=== PATIENT | female | born 1940 | race Caucasian/White ===

== ENCOUNTER 2022-06-01 16:21 | Outpatient (CLI) | payer MEDICARE, SELFPAY ==
--- NOTE | ~2022-06-01 | XR_ITS ---
EXAMINATION: XR abdomen/kub 1V DATE: 06/01/2022 16:40 INDICATION: Generalized abdominal pain. Constipation. TECHNIQUE: A supine view of the abdomen was obtained. COMPARISON: None. FINDINGS: There are no dilated loops of bowel. There is a small volume of stool in the colon. Surgica l clips in the right upper quadrant are likely from cholecystectomy. There are changes of vertebropla sty in thoracic spine. IMPRESSION: 1. Normal bowel gas pattern. Reviewed, dictated and finalized at location A.
== END 2022-06-01 16:22 | disposition home or self-care (01) ==
PROVIDERS: PCP Family Medicine; Visit Provider Family Medicine
DX: R10.9 Unspecified abdominal pain (principal)
CPT/HCPCS: 74018

== ENCOUNTER 2022-10-17 13:15 | Outpatient (RCR) | payer MEDICARE, SELFPAY ==
--- NOTE | 2022-09-13 08:56 | OTOPEVAL1 ---
Assessment and note entered by STEPHEN Huitron/Tung Evaluation Information Assessment Status Evaluation Diagnosis L distal radius fracture Subjective Information Patient presents with a L distal radius fracture on 07/31/2022. Patient reports since breaking wrist has experienced difficulties with gripping/ grasping tasks, decreased wrist and finger motion. Patient reports has a history of trigger finger in middle finger of L hand several years prior but returned about 6 months ago. Patient reports goal with therapy is to get L hand and wrist moving better for daily tasks. Reported Pain Level Pain Score 0: Self Report Assessment OT Clinical Summary Amanda is a 82 year old female who presents to outpatient OT following a L distal radius fracture 07/31/2022 (6 weeks prior). Patient has decreased strength, active ROM, and some increased discomfort with movement of L UE wrist and hand. Patient would benefit from skilled OT for HEP instruction, UE exercise, modalities, manual therapy for optimizing functional use of L UE for daily activities. Plan of Care Interventions Therapeutic Exercise,Manual Therapy,Therapeutic Activities,Hot Pack/Cold Pack,Self-Care/Home Management,Paraffin OT Services Indicated Yes Treatment Frequency and 1x/wk, 5 weeks Duration These treatments will address the objective and functional deficits as defined above. The patient will be advanced safely and appropriately in order for the patient to progress towards his/her prior level of function. Additional exercises will be introduced and as well as a comprehensive home exercise program upon discharge, if needed, ?to ensure carryover of functional gains achieved in the clinic. This treatment plan has been reviewed and agreement upon by the patient.
--- NOTE | 2022-10-17 13:43 | OTOPDC ---
Assessment and note entered by Anthony Delgado, STEPHEN/Tung, CHT Evaluation Information Assessment Status Discharge Diagnosis L distal radius fracture Onset 07/31/22 Subjective Information Amanda reports she is now able to picker/puller and carry objects, such as a cup of coffee. She states she is also picking up dishes and doing more in the kitchen. Reporting her biggest limitation is the trigger finger now. She is wearing a splint for this and following up with the MD in 3 weeks. Reported Pain Level Pain Score 0,0: Self Report Additional Pain Score Comments Patient reporting no pain in the wrist at wrist. Pain increases to 4/10 with some of the exercises. Reports 9/10 pain when the trigger finger gets stuck. Assessment OT Clinical Summary Amanda is a 82 year old female who presents to outpatient OT following a left distal radius fracture 07/31/2022. She has made excellent progress with functional ROM and strength of the left forearm and wrist. She continues to have some residual stiffness, but is independent with the HEP for this. No further skilled OT indicated at this time. Plan of Care OT Services Indicated No
== END 2022-10-17 14:18 | disposition home or self-care (01) ==
LOC: ANHOT 13:15
PROVIDERS: PCP Family Medicine; Visit Provider Orthopaedic Surgery
DX: S52.502D Unspecified fracture of the lower end of left radius, subsequent encounter for closed fracture with routine healing (principal)
CPT/HCPCS: 97018; 97110; 97165

== ENCOUNTER 2022-11-17 15:30 | Outpatient (CLI) | payer MEDICARE, SELFPAY ==
--- NOTE | ~2022-11-17 | MR_ITS ---
EXAMINATION: MR knee RT wo con DATE: 11/17/2022 16:21 INDICATION: Fall onto right knee last following. Patellar and pain below the patella. TECHNIQUE: Magnetic resonance imaging (MRI) of the right knee was performed without intravenous contr ast. Sequences included axial PD-weighted FS FSE, coronal PD-weighted FSE and PD-weighted FS FSE, sag ittal PD-weighted FSE, and sagittal T2-weighted FS FSE. COMPARISON: X-ray right knee 07/31/2022, images only. FINDINGS: Medial compartment: Apical fraying. No meniscal tear. Moderate diffuse cartilage thinning. Mild osteophytosis. Lateral compartment: Intact meniscus. Moderate diffuse cartilage thinning. Mild osteophytosis. Patellofemoral compartment: Old vertically oriented fracture of the left patella, with persistent visualization of the fracture l ine, likely filled with granulation tissue. Osseous bridging, encompassing approximately 30-40% of th e fracture area. Moderate diffuse cartilage loss. Near full-thickness cartilage loss over the median ridge. No focal cartilage defect. Ligaments and tendons: The MCL, LCL, ACL, and PCL are intact. The remaining flexor and extensor tendons are intact. Fluid: Moderate volume joint fluid. Osseous/other: No suspicious focal or diffuse marrow signal. Chondrocalcinosis was present in the menisci in the clement[place] or radiographs. IMPRESSION: 1. Old partly oriented patellar fracture, with 30-40% osseous bridging. 2. No internal derangement. 3. Moderate right knee joint effusion. 4. Moderate tricompartmental arthritic change. Reviewed, dictated and finalized at location K. ATAL NURSE
== END 2022-11-17 15:31 | disposition home or self-care (01) ==
PROVIDERS: PCP Family Medicine; Visit Provider Orthopaedic Surgery
DX: M25.461 Effusion, right knee (principal); M17.11 Unilateral primary osteoarthritis, right knee
CPT/HCPCS: 73721

== ENCOUNTER 2023-05-03 12:18 | Outpatient (CLI) | payer MEDICARE, SELFPAY ==
--- NOTE | ~2023-05-03 | XR_ITS ---
Right Hand Technique: PA, oblique, and lateral views were obtained. Clinical History: Arthritis of the thumb Findings: No acute fracture or dislocation is seen. Osseous alignment is anatomic. There is mild oste oarthritis at the first CMC joint. Soft tissues are unremarkable. 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 Reviewed, dictated and finalized at [facility]. 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
== END 2023-05-03 12:19 | disposition home or self-care (01) ==
PROVIDERS: PCP Family Medicine; Visit Provider Plastic Surgery
DX: M18.11 Unilateral primary osteoarthritis of first carpometacarpal joint, right hand (principal)
CPT/HCPCS: 73130

== ENCOUNTER 2023-06-14 12:45 | Outpatient (RCR) | payer MEDICARE, SELFPAY ==
--- NOTE | 2023-04-27 16:09 | PTOPEVAL1 ---
Assessment and note entered by Simon Olvera, PT Evaluation Information Assessment Status Evaluation Diagnosis Spondylosis, RIght knee pain, Weakness Onset 07/31/22 Subjective Information Reports that she has had back issues for years. She had a fall last year that resulted in knee and wrist injury. Pain usually starts on her R side and radiates down her right leg. She cannot carry anything over 10 pounds without increased pain. She has had trouble getting up and down from a chair due to what she feels is related to weakness more than pain. Would also like to improve her posture. She used to receive cortisone injections but has not for a while. Reported Pain Level Pain Score 3: Self Report Assessment PT Clinical Summary Patient presents with significant chain deficits in knee, hip, and lumbar spine. Reflects gait and postural issues with centralized hip weakness and will benefit from skilled therapy to address all of these deficits. PT should emphasize gait stability, cycle, and progress to postural control in hips and upper back. Plan of Care Interventions Gait Training,Manual Therapy,Neuro Re-education, Therapeutic Activities,Therapeutic Exercise PT Services Indicated Yes These treatments will address the objective and functional deficits as defined above. The patient will be advanced safely and appropriately in order for the patient to progress towards his/her prior level of function. Additional exercises will be introduced and as well as a comprehensive home exercise program upon discharge, if needed, ?to ensure carryover of functional gains achieved in the clinic. This treatment plan has been reviewed and agreement upon by the patient.
--- NOTE | 2023-04-27 16:09 | OPREHPOC ---
Outpatient Therapy Plan of Care This is a Multidisciplinary Plan of Care that may contain components documented by all disciplines (PT, OT, and ST.) PT Problem 1 PT Problem #1 Knowledge Deficit PT Goal 1 Goal [place] with hip and core strengthening program Target Visit 8 PT Problem 2 PT Problem #2 Pain PT Goal 1 Goal Report no pain greater than 2/10 with transfers and walking PT Problem 3 PT Problem #3 Impaired Strength PT Goal 1 Goal Improve sylvia hip flexion strength to 4+/5 to improve foot clearance with gait Target Visit 8 PT Goal 2 Goal Improve sylvia hip abduction strength to 4/5 to improve stability with transfers and ADLs Target Visit 8 PT Problem 4 PT Problem #4 Impaired Functional Mobil PT Goal 1 Goal Patient will demonstrate ability to perform 10# floor retrieval without pain Target Visit 8
--- NOTE | 2023-05-23 16:13 | OTOPEVAL1 ---
Assessment and note entered by Anthony Delgado, STEPHEN/Tung, CHT Evaluation Information Assessment Status Evaluation Diagnosis Left middle finger and right thumb trigger fingers ; right CMC OA Subjective Information Patient reports having a trigger on the left middle finger for a long time. She has had 2 steroid injections, most recently one at the beginning on May. She has not been immobilizing the finger, but does have two splints at home. For the right thumb she has been having pain, difficulties with gripping and pinching items, and triggering also. Reported Pain Level Pain Score 4: Self Report Additional Pain Score Comments Patient takes Tylenol daily for the thumb pain. She has no pain in the left middle finger Assessment OT Clinical Summary Patient referred to outpatient hand therapy for left middle finger trigger finger, right thumb trigger finger, and right CMC OA. She has palpable nodules at both A1 pulleys and with active flexion the finger/thumb triggers, but she is able to actively extend out of this. Today a custom hand based thumb spica splint was fabricated to support the CMC joint, but the thumb IP was also included to rest the FPL tendon. She was educated on utilizing massage and ice to the A1 rachna areas. Continued skilled OT indicated for HEP instruction/progression, manual therapy, modalities, and splinting. Plan of Care Interventions Therapeutic Exercise,Manual Therapy,Therapeutic Activities,Hot Pack/Cold Pack,Check Out for Orthotic/Pr,Ultrasound,Paraffin OT Services Indicated Yes Treatment Frequency and 2x/week for 3 weeks Duration Patient going out of town mid-June These treatments will address the objective and functional deficits as defined above. The patient will be advanced safely and appropriately in order for the patient to progress towards his/her prior level of function. Additional exercises will be introduced and as well as a comprehensive home exercise program upon discharge, if needed, ?to ensure carryover of functional gains achieved in the clinic. This treatment plan has been reviewed and agreement upon by the patient.
--- NOTE | 2023-05-23 16:14 | OPREHPOC ---
Outpatient Therapy Plan of Care This is a Multidisciplinary Plan of Care that may contain components documented by all disciplines (PT, OT, and ST.) PT Problem 1 PT Problem #1 Knowledge Deficit PT Goal 1 Goal [place] with hip and core strengthening program Target Visit 8 PT Problem 2 PT Problem #2 Pain PT Goal 1 Goal Report no pain greater than 2/10 with transfers and walking PT Problem 3 PT Problem #3 Impaired Strength PT Goal 1 Goal Improve sylvia hip flexion strenght to 4+/5 to improve foot clearence with gait Target Visit 8 PT Goal 2 Goal Improve sylvia hip abduction strength to 4/5 to improve stability with transfers and ADLs Target Visit 8 PT Problem 4 PT Problem #4 Impaired Functional Mobil PT Goal 1 Goal Patient will demonstrate ability to perform 10# floor retrieval without pain Target Visit 8 OT Problem 1 OT Problem #1 Knowledge Deficit OT Goal 1 Goal Patient to be independent with instructed materials. Target Visit 6 OT Goal 2 Goal Patient to adhere to splint wearing schedule. Target Visit 6 OT Problem 2 OT Problem #2 Pain OT Goal 1 Goal Patient to report reduced pain in the right thumb with ROM/use, reporting pain at 2/10 or less. Target Visit 6 OT Problem 3 OT Problem #3 Impaired Range of Motion OT Goal 1 Goal Patient to be able to make a composite fist with the left hand without the middle finger triggering . Target Visit 6 OT Goal 2 Goal Patient to be able to flex the right thumb IP without triggering. Target Visit 6
--- NOTE | 2023-06-08 10:11 | PCOTNOTE ---
Late note for 06/07/23 - Patient called and cancelled tx today due to having poison domenico and didn't want to come in with it.
--- NOTE | 2023-06-11 14:48 | OPREHPOC ---
Outpatient Therapy Plan of Care This is a Multidisciplinary Plan of Care that may contain components documented by all disciplines (PT, OT, and ST.) PT Problem 1 PT Problem #1 Knowledge Deficit PT Goal 1 Goal [place] with hip and core strengthening program Target Visit 8 Progress Met PT Problem 2 PT Problem #2 Pain PT Goal 1 Goal Report no pain greater than 2/10 with transfers and walking Progress Partially Met Comment Improved but not consistent PT Problem 3 PT Problem #3 Impaired Strength PT Goal 1 Goal Improve sylvia hip flexion strength to 4+/5 to improve foot clearance with gait Target Visit 8 Progress Met PT Goal 2 Goal Improve sylvia hip abduction strength to 4/5 to improve stability with transfers and ADLs Target Visit 8 Progress Met PT Problem 4 PT Problem #4 Impaired Functional Mobil PT Goal 1 Goal Patient will demonstrate ability to perform 10# floor retrieval without pain Target Visit 8 OT Problem 1 OT Problem #1 Knowledge Deficit OT Goal 1 Goal Patient to be independent with instructed materials. Target Visit 6 OT Goal 2 Goal Patient to adhere to splint wearing schedule. Target Visit 6 OT Problem 2 OT Problem #2 Pain OT Goal 1 Goal Patient to report reduced pain in the right thumb with ROM/use, reporting pain at 2/10 or less. Target Visit 6 OT Problem 3 OT Problem #3 Impaired Range of Motion OT Goal 1 Goal Patient to be able to make a composite fist with the left hand without the middle finger triggering . Target Visit 6 OT Goal 2 Goal Patient to be able to flex the right thumb IP without triggering. Target Visit 6
--- NOTE | 2023-06-11 14:49 | PTOPDC ---
Assessment and note entered by Simon Olvera, PT Discharge Information Assessment Status Discharge Diagnosis Spondylosis, Right knee pain, Weakness Onset 07/31/22 Subjective Information Patient reports that therapy has really helped but she is still having discomfort shifting into back with activity. Overall no new concerns and feel she is comfortable with HEP. Plans to be out of town visiting family for 1 month and will discharge for now. Reported Pain Level Pain Score 0: Self Report Assessment PT Clinical Summary Patient has made significant strides in gait and strength. She is still showing deficits in hip abduction and extension which have reflected in functional mobility. She reflects compliance with HEP at this time and is suitable for D/C to HEP since she will be out of town for 1 month+. Plan of Care PT Services Indicated
--- NOTE | 2023-06-14 13:45 | OTOPPROG ---
Assessment and note entered by Anthony Delgado, OTR/Tung, CHT Evaluation Information Assessment Status Progress Diagnosis Left middle finger and right thumb trigger fingers ; right CMC OA Subjective Information Patient reports no longer having any pain in either hand. She reports she is now able to use her hands for more tasks, but she reports she is cautious. No longer reporting any pain with pinching. She has a right hand based thumb spica, which includes the thumb IP. As well as a finger immobilizer for the left middle finger. Trigger finger and thumb no longer catch with gentle ROM. With any forceful gripping there are catches/triggers. 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 Today she is able to move through active ROM without any triggering. With gross gripping on the left she does have trigger finger symptoms, but reports no longer having any pain with this. She has splints for both hands and is independent with all materials. She is traveling for a month, leaving this Sunday. Plan - have patient continue splinting, ROM, massage, and modalities on her own with the goal of following up in a month to be able to issue putty to begin neuropsychologist/pinch strengthening without any symptoms of triggering. Plan of Care Interventions Therapeutic Exercise,Manual Therapy,Therapeutic Activities,Hot Pack/Cold Pack,Check Out for Orthotic/Pr,Ultrasound,Paraffin OT Services Indicated Yes Treatment Frequency and Re-eval in a month: 07/20/23 Duration These treatments will address the objective and functional deficits as defined above. The patient will be advanced safely and appropriately in order for the patient to progress towards his/her prior level of function. Additional exercises will be introduced and as well as a comprehensive home exercise program upon discharge, if needed, ?to ensure carryover of functional gains achieved in the clinic. This treatment plan has been reviewed and agreement upon by the patient.
--- NOTE | 2023-06-14 13:46 | OPREHPOC ---
Outpatient Therapy Plan of Care This is a Multidisciplinary Plan of Care that may contain components documented by all disciplines (PT, OT, and ST.) PT Problem 1 PT Problem #1 Knowledge Deficit PT Goal 1 Goal [place] with hip and core strengthening program Target Visit 8 Progress Met PT Problem 2 PT Problem #2 Pain PT Goal 1 Goal Report no pain greater than 2/10 with transfers and walking Progress Partially Met Comment Improved but not consistent PT Problem 3 PT Problem #3 Impaired Strength PT Goal 1 Goal Improve [place] hip flexion strenght to 4+/5 to improve foot clearence with gait Target Visit 8 Progress Met PT Goal 2 Goal Improve sylvia hip abduction strength to 4/5 to improve stability with transfers and ADLs Target Visit 8 Progress Met PT Problem 4 PT Problem #4 Impaired Functional Mobil PT Goal 1 Goal Patient will demonstrate ability to perform 10# floor retrieval without pain Target Visit 8 OT Problem 1 OT Problem #1 Knowledge Deficit OT Goal 1 Goal Patient to be independent with instructed materials. ---OT POC UPDATE 06/14/23-- Met, continue as HEP is progressed Target Visit 8 OT Goal 2 Goal Patient to adhere to splint wearing schedule. ---OT POC UPDATE 06/14/23-- Met, continue as splints are weaned out of. Target Visit 8 OT Problem 2 OT Problem #2 Pain OT Goal 1 Goal Patient to report reduced pain in the right thumb with ROM/use, reporting pain at 2/10 or less. ---OT POC UPDATE 06/14/23-- Met, continue to treat pain PRN Target Visit 8 OT Problem 3 OT Problem #3 Impaired Range of Motion OT Goal 1 Goal Patient to be able to make a composite fist with the left hand without the middle finger triggering
--- NOTE | 2023-07-23 14:23 | PCOTNOTE ---
This treatment is being continued on visit number [id number]. Please see documentation on both accounts to view progress. Completed interventions, outcomes, and problems have been marked as Inactive to facilitate the copying of the Care plan routine for recurring accounts.
== END 2023-07-20 07:08 | disposition home or self-care (01) ==
LOC: ANHGOSHOT 12:45
PROVIDERS: PCP Family Medicine; Referring Provider Plastic Surgery; Visit Provider Family Medicine
DX: M47.9 Spondylosis, unspecified (principal); M25.561 Pain in right knee; M54.16 Radiculopathy, lumbar region; R26.89 Other abnormalities of gait and mobility; R53.1 Weakness
CPT/HCPCS: 97018; 97035; 97110; 97140; 97161; 97166; 97530; L3921

== ENCOUNTER 2023-07-30 13:15 | Outpatient (RCR) | payer MEDICARE, SELFPAY ==
--- NOTE | 2023-07-23 14:24 | PCOTNOTE ---
The treatment documented on this account is a continuation of the treatment documented on visit number [id number]. Please see documentation on both accounts to view progress. The Plan of Care has been transitioned and updated within the new V#. I have addressed and agree with the discipline specific Problems, Interventions, and Goals for the current certification period. Completed interventions, outcomes, and problems have been marked as Inactive to facilitate the copying of the Care plan routine for recurring accounts.
--- NOTE | 2023-07-23 14:26 | OTOPPROG ---
Assessment and note entered by Anthony Delgado, OTR/Tung, CHT Evaluation Information Diagnosis trigger finger, hand pain Subjective Information Patient reports no longer having symptoms of a trigger finger in the left thumb. The right middle finger continues to trigger and is a little painful, reporting 2/10. States she has had times where the finger feels good, doesn't catch, but seems like out of nowhere it will start catching and she returns to wearing her splint again. States she doesn't want surgery, but thinks this will be around chronically. Assessment OT Clinical Summary Progress note 07/23/23. Patient has not been seen since 06/14/23 due to traveling for a month. While out of town the patient kept up with her HEP. Patient initially referred to outpatient hand therapy for left middle finger trigger finger, right thumb trigger finger, and right CMC OA. She is no longer having pain or triggering on the right thumb, wrapping up care on that hand today. She continues to have triggering on the left middle finger, which catches with active ROM today . It was the hope to be able to upgrade her HEP today after a month of doing the HEP independently . Unfortunately the tendon continues to get stuck. Will be continuing skilled OT for use of modalities, manual therapy, and eventually for HEP progression when indicated to facilitate optimal functional hand use. Plan of Care Interventions Therapeutic Exercise,Manual Therapy,Therapeutic Activities,Hot Pack/Cold Pack,Check Out for Orthotic/Pr,Ultrasound,Paraffin OT Services Indicated Yes Treatment Frequency and 2x/week for 3 weeks Duration These treatments will address the objective and functional deficits as defined above. The patient will be advanced safely and appropriately in order for the patient to progress towards his/her prior level of function. Additional exercises will be introduced and as well as a comprehensive home exercise program upon discharge, if needed, ?to ensure carryover of functional gains achieved in the clinic. This treatment plan has been reviewed and agreement upon by the patient.
--- NOTE | 2023-07-23 14:26 | OPREHPOC ---
Outpatient Therapy Plan of Care This is a Multidisciplinary Plan of Care that may contain components documented by all disciplines (PT, OT, and ST.) OT Problem 1 OT Problem #1 Knowledge Deficit OT Goal 1 Goal Patient to be independent with instructed materials. ---OT POC UPDATE 06/14/23-- Met, continue as HEP is progressed ---OT POC UPDATE 07/23/23-- Met, continue as HEP is progressed Target Visit 10 OT Goal 2 Goal Patient to adhere to splint wearing schedule. ---OT POC UPDATE 06/14/23-- Met, continue as splints are weaned out of. ---OT POC UPDATE 07/23/23-- Inconsistently met, continue splinting on left middle finger Target Visit 10 OT Problem 2 OT Problem #2 Pain OT Goal 1 Goal Patient to report reduced pain in the right thumb with ROM/use, reporting pain at 2/10 or less. ---OT POC UPDATE 06/14/23-- Met, continue to treat pain PRN ---OT POC UPDATE 07/23/23-- Met with right thumb, continue to treat pain on left middle finger with the goal of 0/10 pain with use. Target Visit 10 OT Goal 2 Goal Patient to be able to flex the right thumb IP without triggering. ---OT POC UPDATE 06/14/23-- Inconsistently met, continue to monitor trigger thumb. ---OT POC UPDATE 07/23/23-- Met, D/C goal OT Problem 3 OT Problem #3 Impaired Strength OT Goal 1 Goal New Goals 06/14/23: 1. Patient to increase right nut sifter strength to 44 lbs. 2. Patient to increase left nut sifter strength to 38 lbs. ---OT POC UPDATE 07/23/23--- 1. Not measured today 2. Not measured today Target Visit 10
--- NOTE | 2023-08-08 08:15 | OTOPDC ---
Assessment and note entered by Anthony Delgado, STEPHEN/Tung, CHT Discharge Summary OT Clinical Summary Patient was initially evaluated on 05/23/23 for left middle finger and right thumb trigger fingers as well as right 1st CMC OA. She participated in 7 outpatient sessions focused on reducing inflammation and pain in bilateral hands. She progressed to having no symptoms of triggering in the right thumb, however the left middle finger continues to catch and cause pain. She is currently independent with splinting, passive ROM, active ROM, and manual massage. At this time she wishes to continue her HEP independently for the left hand to see if more time will help reduce her symptoms. She plans to follow up with MD for any needs in the future. Discharging today per patient request.
== END 2023-08-08 13:52 | disposition home or self-care (01) ==
LOC: ANHOT 13:15
PROVIDERS: PCP Family Medicine; Referring Provider Plastic Surgery; Visit Provider Family Medicine
DX: M54.16 Radiculopathy, lumbar region (principal); M47.9 Spondylosis, unspecified; M25.561 Pain in right knee; M18.11 Unilateral primary osteoarthritis of first carpometacarpal joint, right hand; M65.332 Trigger finger, left middle finger; M65.311 Trigger thumb, right thumb; R53.1 Weakness; R26.89 Other abnormalities of gait and mobility
CPT/HCPCS: 97018; 97035; 97110; 97140

== ENCOUNTER 2023-09-14 08:38 | Outpatient (CLI) | payer MEDICARE, SELFPAY ==
--- NOTE | ~2023-09-14 | US_ITS ---
Abdominal Sonogram: Real-time sonographic imaging of the abdomen was performed. Clinical History: Leukopenia Findings: The liver appears normal with no evidence of mass lesion or bile duct dilatation. Main por cholo vein demonstrates normal direction of flow. The spleen is normal in size without evidence of foca l lesion. The gallbladder is absent, compatible prior cholecystectomy. The common bile duct measures 2 mm. The visualized pancreas, aorta, and IVC are unremarkable. The right kidney measures 9.6 cm i n length and the left kidney measures 10.9 cm. There is no hydronephrosis or renal calculus. Impression: Status post cholecystectomy, otherwise unremarkable exam. Reviewed, dictated and finalized at location . Y WORKER Impression: Status post cholecystectomy, otherwise unremarkable exam.
== END 2023-09-14 08:39 | disposition home or self-care (01) ==
PROVIDERS: PCP Family Medicine; Visit Provider Nurse Practitioner Family
DX: D72.819 Decreased white blood cell count, unspecified (principal); Z90.49 Acquired absence of other specified parts of digestive tract
CPT/HCPCS: 76700

== ENCOUNTER 2023-10-03 10:10 | Outpatient (CLI) | payer MEDICARE, SELFPAY ==
[2023-10-03 10:27] LABS: Eosinophils Absolute Auto 0.2 K/mm3 (0-0.3); Eosinophils Percent Auto 6.7 % (0-4.4); Hematocrit 34.3 % (37.0-47.0); Hemoglobin 11.3 g/dL (12.0-15.0); Immature Granulocyte Absolute 0.02 K/mm3 (0.00-0.031); Immature Granulocyte Percent A 0.7 % (0-0.5); Lymphocytes Percent Auto 36.8 % (18.3-44.2); Mean Corpuscular HGB Conc 32.9 g/dl (32-36); Mean Corpuscular Hemoglobin 30.7 pg (26-34); Mean Corpuscular Volume 93.2 fl (80-100); Mean Platelet Volume 8.7 fl (7.4-10.4); Monocytes Absolute Auto 0.4 K/mm3 (0.1-0.6); Monocytes Percent Auto 12.4 % (2.6-8.5); Neutrophils Absolute Auto 1.3 K/mm3 (1.3-6.7); Neutrophils Percent Auto 42.4 % (45.5-73.1); Platelet Count Result 142 k/mm3 (150-375); Red Blood Count 3.68 M/mm3 (4.2-5.4); Red Cell Distribution Width 13.5 % (11.5-14.5)
== END 2023-10-03 10:11 | disposition home or self-care (01) ==
PROVIDERS: PCP Family Medicine; Visit Provider Internal Medicine Hematology & Oncology
DX: D64.9 Anemia, unspecified (principal)
CPT/HCPCS: 36415; 85025

== ENCOUNTER 2024-11-05 15:07 | Outpatient (CLI) | payer MEDICARE, SELFPAY ==
--- NOTE | ~2024-11-05 | MR_ITS ---
EXAMINATION: MR lumbar spine wo con DATE: 11/05/2024 15:43 INDICATION: Spondylosis without myelopathy or radiculopathy. Low back pain. TECHNIQUE: Magnetic resonance imaging (MRI) of the lumbar spine was performed without intravenous con trast. Sequences included sagittal T2-weighted FSE, sagittal T2-weighted FS FSE, sagittal T1-weighted FSE, and axial T2-weighted FSE. COMPARISON: Lumbar spine MRI 07/21/2011 FINDINGS: There is 21 degrees levoscoliosis of thoracolumbar spine. There are chronic compression fra ctures of T11 and T12 with changes of vertebroplasties. There is moderately decreased disc height at L1-L2 and L2-L3 and mildly decreased disc height at L3-L4. There is ligamentum flavum hypertrophy at the disc levels in lumbar spine. The distal spinal cord signal intensity is normal. The conus medulla ris is at L1-L2. The following disc levels are specifically discussed: L1-L2: The disc is bulging. There is severe bilateral facet joint osteoarthritis. There is mild bilat eral neural foraminal stenosis. There is mild central canal stenosis. L2-L3: The disc is bulging. There is moderate bilateral facet joint osteoarthritis. There is mild sylvia ateral neural foraminal stenosis. There is mild central canal stenosis. L3-L4: The disc is bulging. There is severe bilateral facet joint osteoarthritis. There is mild bilat eral neural foraminal stenosis. There is mild central canal stenosis. L4-L5: The disc is bulging. There is severe bilateral facet joint osteoarthritis. There is mild right and moderate left neural foraminal stenosis. There is mild central canal stenosis. L5-S1: The disc is bulging. There is severe bilateral facet joint osteoarthritis. There is mild left neural foraminal stenosis. There is mild central canal stenosis. IMPRESSION: 1. Moderate lumbar spondylosis. 2. Thoracolumbar levoscoliosis. Reviewed, dictated and finalized at location A. RACT AGENT
== END 2024-11-05 15:08 | disposition home or self-care (01) ==
LOC: MICIMG 15:09
PROVIDERS: PCP Family Medicine; Visit Provider Family Medicine
DX: M47.816 Spondylosis without myelopathy or radiculopathy, lumbar region (principal); M54.50 Low back pain, unspecified; G89.29 Other chronic pain
CPT/HCPCS: 72148

== ENCOUNTER 2025-04-13 13:58 | Outpatient (CLI) | payer MEDICARE, SELFPAY ==
--- NOTE | ~2025-04-13 | DEXA_ITS ---
Bone Density Report Name: ROBERT TITUS Age: 84 Sex: Female Ethnicity: White Date of : 1940 Indication: osteopenia; monitoring treatment; parental hip fracture; height loss; Referring Provider: JOHAN ALBERTO Study: Bone densitometry was performed. Exam Date: April 13, 2025 Accession number: [id number] Bone Density: Region BMD T-score Z-score Classification AP Spine(L1-L4) 0.884 -1.5 1.3 Osteopenia Femoral Neck (Left) 0.514 -3.0 -0.5 Osteoporosis Total Hip (Left) 0.675 -2.2 0.1 Osteopenia Femoral Neck (Right) 0.533 -2.8 -0.4 Osteoporosis Total Hip (Right) 0.678 -2.2 0.1 Osteopenia Total Hip Mean 0.677 -2.2 0.1 Osteopenia World Health Organization criteria for BMD impression classify patients as: Normal (T-score at or above -1.0), Osteopenia (T-score between -1.0 and -2.5), or Osteoporosis (T-score at or below -2.5). 10-year Fracture Risk: FRAX not reported because: Some T-score for Spine Total or Hip Total or Femoral Neck at or below -2.5 Treated for osteoporosis Previous Exams: Region Exam Age BMD T-score BMD Change BMD Change Date g/cm2 vs Baseline vs Previous AP Spine (L1-L4) 04/13/2025 84 0.884 -1.5 0.056 (6.8%)* -0.015 (-1.7%) 12/12/2017 77 0.900 -1.3 0.071 (8.6%)* 0.071 (8.6%)* 05/31/2015 74 0.828 -2.0 Total Hip(Left) 04/13/2025 84 0.675 -2.2 -0.049 (-6.8%) 0.000 (0.1%) 12/12/2017 77 0.675 -2.2 -0.050 (-6.8%) -0.050 (-6.8%) 05/31/2015 74 0.725 -1.8 Total Hip(Right) 04/13/2025 84 0.678 -2.2 -0.047 (-6.5%) -0.014 (-2.1%) 12/12/2017 77 0.692 -2.0 -0.032 (-4.5%) -0.032 (-4.5%) 05/31/2015 74 0.725 -1.8 *Denotes significance at 95% confidence level, LSC for AP Spine = 0.022 g/cm2, LSC for Total Hip = 0.027 g/cm2 Clinical Information Provided by Patient: Parent has had a hip fracture Is being treated for osteoporosis Has used the following medications: Miacalcin (i.e. calcitonin) Patient maximum height was 66 Menopause Age: 43 Drinks caffeinated beverages Onset of menses at age 15 Number of children 0 Impression: The patient has osteoporosis, based on the Left Femoral Neck T-score. The patient has risk factors, including: parental hip fracture. No significant bone loss was observed. Discussion: PATIENT UNDER TREATMENT WITH NO SIGNIFICANT BMD LOSS SINCE LAST EXAM. In an untreated patient, BMD typically declines with age. A lack of decline or gain is usually a sign that treatment is efficacious and fracture risk is reduced. It is important to ask patients whether they are taking their medications and to encourage continued and appropriate compliance with their osteoporosis therapies to reduce fracture risk. It is also important to review their risk factors and encourage appropriate calcium and vitamin D intakes, exercise, fall prevention and other lifestyle measures. Follow-Up: Consider a repeat BMD and Vertebral Fracture Assessment (VFA) exam in 2 years or sooner if medically necessary, to reassess this patient's status. Reported by: MAGALI on 04/13/2025 2:38:00 PM. Reviewed, dictated and finalized at location A.
--- OUTSIDE RECORDS SUMMARY | 2025-04-13 14:12 | XMS_ITS | Clinical Summary ---
Author Organization [place] [address] [facility] Address [address] [place] [address] Care Team Providers Care Sales Representative Printing Name Role Phone Nina Anyaa MD Primary Care Provider [phone]- [phone] Allergies Active Allergy Reactions Criticality Noted Date Comments Amoxicillin Itching Low 07/31/2022 Clindamycin Unknown 01/16/2024 Medications atorvastatin (LIPITOR) 20 mg tablet Take 20 mg by mouth daily. 3 Active azelastine (ASTELIN) 137 mcg/actuation nasal spray Administer 1 [place] in each nostril daily. 3 Active buPROPion HCL (WELLBUTRIN XL) 150 mg Extended Release 24 hour tablet Take 150 mg by mouth daily in the morning. 3 Active felodipine (PLENDIL) 10 mg Extended Release 24 hour tablet Take 10 mg by mouth daily. 3 Active furosemide (LASIX) 20 mg tablet Take 5 mg by mouth daily. 3 Active gabapentin (NEURONTIN) 100 mg capsule Take 100 mg by mouth 3 times daily. 3 Active ramipriL (ALTACE) 10 mg capsule Take 10 mg by mouth daily. 3 Active acetaminophen (TYLENOL ARTHRITIS) 650 mg Extended Release tablet Take 650 mg by mouth every 6 hours as needed for Pain. Active DULoxetine (CYMBALTA) 30 mg Capsule, Delayed Release(E.C.) Take 30 mg by mouth 2 times daily. Active aspirin (ECOTRIN EC) 81 mg Tablet, Delayed Release (E.C.) Take 81 mg by mouth daily. Active loratadine (CLARITIN) 10 mg tablet Take 10 mg by mouth daily. Active ibuprofen (MOTRIN) 800 mg tablet Take 800 mg by mouth every 6 hours as needed for Pain, Mild. Active Active Problems No known active problems Encounters Date Type Department Care Team Description 03/18/2025 External Device Data [facility] ABSTRACTION Provider, Abstract 03/17/2025 External Device Data [facility] ABSTRACTION Provider, Abstract 02/19/2025 External Device Data [facility] ABSTRACTION Provider, Abstract 02/18/2025 External Device Data [facility] ABSTRACTION Provider, Abstract 02/17/2025 External Device Data [facility] ABSTRACTION Provider, Abstract from Last 3 Months Family History Medical History Relation Name Comments Heart Disease Father No Known Problems Mother Relation Name Status Comments Daughter adopted Father Mother Son adopted Social History Tobacco Use Types Packs/Day Years Used Date Smoking Tobacco: Never Smokeless Tobacco: Never Tobacco Cessation:Counseling Given: Not Answered Alcohol Use Standard Drinks/Week Comments Yes 0 (1 standard drink = 0.6 oz pur e alcohol) Socially Comments Unknown Sex and Gender Information Value Date Recorded Sex Assigned at Female 08/24/2023 7:49 PM OPERATIONS RESEARCH DIRECTOR Legal Sex Female 10:22 AM OPERATIONS RESEARCH DIRECTOR Gender Identity Female 08/24/2023 7:49 PM OPERATIONS RESEARCH DIRECTOR Sexual Orientation Straight 08/24/2023 7: 49 PM OPERATIONS RESEARCH DIRECTOR Last Filed Vital Signs Vital Sign Reading Time Taken Comments Blood Pressure 149/73 01/16/2024 3:36 PM CDT Pulse 81 01/16/2024 3:33 PM CDT Temperature 36.2 C (97.2 F) 01/16/2024 3:33 PM CDT Respiratory Rate 18 01/16/2024 3:33 PM CDT Oxygen Saturation 95% 01/16/2024 3:33 PM CDT Inhaled Oxygen Concentration - - Weight 70.6 kg (155 lb 9.6 oz) 01/16/2024 3:33 P M CDT Height 165.1 cm (5' 5) 08/29/2023 1:13 PM OPERATIONS RESEARCH DIRECTOR Body Mass Index 25.89 08/29/2023 1:13 PM OPERATIONS RESEARCH DIRECTOR Plan of Treatment Health Maintenance Due Date Last Done Comments DTAP/TDAP/TD VACCINES (1 - Tdap) 1960 PNEUMOCOCCAL VACCINE 50+ YEARS (1 of 1 - PCV) 06/22/19 91 ZOSTER VACCINE (1 of 2) 1991 OSTEOPOROSIS SCREENING 2006 RSV VACCINE (60+ or ) (1 - 1-dose 75+ series) 2016 INFLUENZA VACCINE (#1) 2025 08/18/2023 Insurance [facility]IC[facility] Care Teams Sales Representative Printing Relationship Specialty Start Date End Date Nina Anaya MD PCP - General Family Practice 05/30/23
--- OUTSIDE RECORDS SUMMARY | 2025-04-13 14:12 | XMS_ITS | Clinical Summary ---
Author Organization [facility] Address [address] [place] [address] Care Team Providers Care Director Media Name Role Phone Nina Anaya MD Primary Care Provider + Source Comments [facility],non-owned Affiliates and Associated Physician Practices is amultiple site organization consisting of ambulatory clinics and hospital sitesin [place], [place], [place] and [place]. This disclosure is being madepursuant to the Care Everywhere program and may not contain all information available regarding this patient. Last updated 18.[facility] Allergies Active Allergy Reactions Criticality Noted Date Comments Amoxicillin Itching 07/31/2022 Medications * Be aware that medications may not be up to date on this document. Alwaysverify current medications with the patient. oxyCODONE, immediate release, (Roxicodone) 5 MG tablet Take 1 (one) tablet by mouth every 6 hours as needed for Pain 12 tablet 07/31/2022 Active Social History Tobacco Use Types Packs/Day Years Used Date Smoking Tobacco: Never Smokeless Tobacco: Never Tobacco Cessation:Counseling Given: Not Answered Alcohol Use Standard Drinks/Week Comments Never 0 (1 standard drink = 0.6 oz pur e alcohol) AUDIT-C Answer Date Recorded Q1: How often do you have a drink containing alcohol? Never 07/31/2022 Q2: How many drinks containi ng alcohol do you have on a typical day when you are drinking? Patient does not drink Q3: How often do you have si x or more drinks on one occasion? Never 07/31/2022 Comments No Sex and Gender Information Value Date Recorded Sex Assigned at Not on file Legal Sex Female 2:51 PM CDT Gender Identity Not on file Sexual Orientation Not on file Last Filed Vital Signs Vital Sign Reading Time Taken Comments Blood Pressure 123/70 07/31/2022 8:25 PM CDT Pulse 73 07/31/2022 8:25 PM CDT Temperature 36.1 C (97 F) 07/31/2022 2:55 PM CDT Respiratory Rate 18 07/31/2022 8:25 PM CDT Oxygen Saturation 97% 07/31/2022 8:25 PM CDT Inhaled Oxygen Concentration - - Weight 68.9 kg (152 lb) 07/31/2022 2:55 PM CDT Height 165.1 cm (5' 5) 07/31/2022 2:55 PM CDT Body Mass Index 25.29 07/31/2022 2:55 PM CDT Plan of Treatment Health Maintenance Due Date Last Done Comments BONE DENSITY TESTING 1940 MEDICARE AWV 12 MONTHS 1940 DTAP/TDAP/TD VACCINES (1 - Tdap) 1960 PNEUMOCOCCAL VACCINE 50+ (1 of 1 - PCV) 1991 ZOSTER VACCINE (1 of 2) 1991 Respiratory Syncytial Virus (RSV) Vaccine Pt: or over 60 yrs (1 - 1-dose 75+ series) 2016 COVID-19 VACCINE ( - 2023-2 5 season) 2024 DEPRESSION SCREENING 10/01/2024 INFLUENZA VACCINE (#1) 2025 HEPATITIS B VACCINE Aged Out No longe r eligible based on patient's age to complete this topic HIB VACCINE Aged Out No longer eligi ble based on patient's age to complete this topic HPV VACCINE Aged Out No longer eligi ble based on patient's age to complete this topic MENINGOCOCCAL (Group B) VACC INE SHARED DECISION-MAKING Aged Out No longer eligibl e based on patient's age to complete this topic MENINGOCOCCAL GROUPS A/C/Y/W VACCINE Aged Out No longer eligible b ased on patient's age to complete this topic Insurance MEDICARE [facility] [place] [id number] [facility] Care Teams Director Media Relationship Specialty Start Date End Date Nina Anaya MD [address] [place] [address] PCP - General Family Medicine 07/31/22
== END 2025-04-13 13:59 | disposition home or self-care (01) ==
LOC: ANHIMG 14:00
PROVIDERS: PCP Family Medicine; Visit Provider Family Medicine
DX: M85.89 Other specified disorders of bone density and structure, multiple sites (principal); Z78.0 Asymptomatic menopausal state; M81.0 Age-related osteoporosis without current pathological fracture
CPT/HCPCS: 77080

== ENCOUNTER 2025-05-12 15:26 | Outpatient (CLI) | payer MEDICARE, SELFPAY ==
--- NOTE | ~2025-05-12 | XR_ITS ---
Exam: X-ray hip bilateral 2 view with AP pelvis CLINICAL HISTORY: Pain in bilateral hips TECHNIQUE: 5 images of the hips were obtained. Comparisons: None. FINDINGS: Bones appear osteopenic. Moderate joint space narrowing with moderate osteophytosis in both hips. No fracture. No dislocation. IMPRESSION: 1. 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 If symptoms persist or worsen, consider a short-term study or MRI for further assessment. Reviewed, dictated and finalized at location A. IMPRESSION: 1. 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 If symptoms persist or worsen, consider a short-term study or MRI for further a ssessment.
--- OUTSIDE RECORDS SUMMARY | 2025-05-12 15:43 | XMS_ITS | Clinical Summary ---
Author Organization [facility] Address [address] [place] [address] Care Team Providers Care Spring Setter Name Role Phone Nina Anaya MD Primary Care Provider +1- [phone] Social History Tobacco Use Types Packs/Day Years Used Date Smoking Tobacco: Never Assessed Comments Unknown Sex and Gender Information Value Date Recorded Sex Assigned at Not on file Legal Sex Female 8:51 AM CDT Gender Identity Not on file Sexual Orientation Not on file Plan of Treatment Health Maintenance Due Date Last Done Comments DTaP, Tdap and Td Vaccines ( 1 - Tdap) 1960 Pneumococcal Vaccine: 50+ Years (1 of 1 - PCV) 1991 Zoster Vaccines (1 of 2) 1991 Annual Medicare Wellness Visit 2006 Dexa Scan (General) 2006 RSV Immunization or 60+ Years (1 - 1-dose 75+ series) 2016 COVID-19 Vaccine (2023-2 5 season) 2024 12/06/2020, 11/15/2020 Meningococcal B Vaccine Aged Out No l onger eligible based on patient's age to complete this topic Meningococcal Vaccine Aged Out No gail jatin eligible based on patient's age to complete this topic RSV Immunizations Under 20 Months Aged Out No longer eligible b ased on patient's age to complete this topic Insurance [facility] [place] [id number] MEDICARE Care Teams Spring Setter Relationship Specialty Start Date End Date Nina Anaya MD [address] [facility] [address] [place] [address] PCP - General FAMILY PRACTICE 12/11/19
--- OUTSIDE RECORDS SUMMARY | 2025-05-12 15:43 | XMS_ITS | Clinical Summary ---
Author Organization [place] [address] [facility] Address [address] [place] [address] Care Team Providers Care Psychological Aide Name Role Phone Nina Anaya MD Primary Care Provider +1- [phone] Allergies Active Allergy Reactions Criticality Noted Date Comments Amoxicillin Itching Low 07/31/2022 Clindamycin Unknown 01/16/2024 Medications atorvastatin (LIPITOR) 20 mg tablet Take 20 mg by mouth daily. 3 Active azelastine (ASTELIN) 137 mcg/actuation nasal spray Administer 1 [place] in each nostril daily. 3 Active buPROPion [...] Encounters Date Type Department Care Team Description 05/06/2025 External Device Data [facility] ABSTRACTION Provider, Abstract 04/15/2025 External Device Data [facility] ABSTRACTION Provider, Abstract 04/15/2025 External Device Data [facility] ABSTRACTION Provider, Abstract 04/15/2025 External Device Data [facility] ABSTRACTION Provider, Abstract 04/14/2025 External Device Data [facility] ABSTRACTION Provider, Abstract 03/18/2025 External Device Data [facility] ABSTRACTION Provider, [...] Sex Assigned at Female 08/24/2023 7:49 PM ROLLER COASTER DESIGNER Legal Sex Female 10:22 AM ROLLER COASTER DESIGNER Gender Identity Female 08/24/2023 7:49 PM ROLLER COASTER DESIGNER Sexual Orientation Straight 08/24/2023 7: 49 PM ROLLER COASTER DESIGNER Last Filed Vital Signs Vital Sign Reading [...] 165.1 cm (5' 5) 08/29/2023 1:13 PM ROLLER COASTER DESIGNER Body Mass Index 25.89 08/29/2023 1:13 PM ROLLER COASTER DESIGNER Plan of Treatment Health Maintenance Due Date Last Done Comments DTAP/TDAP/TD VACCINES (1 - Tdap) 1960 PNEUMOCOCCAL VACCINE 50+ YEARS (1 of 1 - PCV) 06/22/19 91 ZOSTER VACCINE (1 of 2) 1991 OSTEOPOROSIS SCREENING 2006 RSV VACCINE (60+ or ) (1 - 1-dose 75+ series) 2016 INFLUENZA VACCINE (#1) 2025 08/18/2023 Insurance MEDICARE PART A AND B [facility] [place] [id number] Care Teams Psychological Aide Relationship Specialty Start Date End Date Nina Anaya MD PCP - General Family Practice 05/30/23
--- OUTSIDE RECORDS SUMMARY | 2025-05-12 15:43 | XMS_ITS | Clinical Summary ---
Author Organization [facility] Address [address] [place] [address] Care Team Providers Care Methane Gas Collection System Operator Name Role Phone Nina Anaya MD Primary Care Provider + Source Comments [facility],non-owned Affiliates and Associated Physician Practices is amultiple site organization consisting of ambulatory clinics and hospital sitesin [place], [place], [place] and [place]. This disclosure is being madepursuant to the Care Everywhere program and may not contain all information available regarding this patient. Last updated 18.[facility] Pulsity Allergies Active Allergy Reactions Criticality Noted Date [...] age to complete this topic Insurance MEDICARE [facility] [place] [id number] [facility] [place] [id number] Care Teams Methane Gas Collection System Operator Relationship Specialty Start Date End Date Nina Anaya MD [address] [facility] [address] [place] [address] PCP - General Family Medicine 07/31/22
== END 2025-05-12 15:27 | disposition home or self-care (01) ==
PROVIDERS: PCP Family Medicine; Visit Provider Family Medicine
DX: M16.0 Bilateral primary osteoarthritis of hip (principal)
CPT/HCPCS: 73521